=== PATIENT | female | born 1980 | race Two or more races ===

== ENCOUNTER → 2016-08-01 | Outpatient (REF) | payer BC ==
[2016-08-01 17:30] LABS: MEAN CORPUSCULAR HEMOGLOBIN 27.9 pg (27.0-33.0); MEAN CORPUSCULAR HGB CONC 32.9 g/dl (32.0-36.5); MEAN CORPUSCULAR VOLUME 84.5 fl (80.0-96.0); RED CELL DISTRIBUTION WIDTH 13.4 % (11.5-14.5); WHITE BLOOD COUNT 9.1 K/mm3 (4.0-10.0)
[2016-08-01 18:12] LABS: ALBUMIN 3.7 GM/DL (3.2-5.2); ALBUMIN/GLOBULIN RATIO 0.97 (1.00-1.93); ALKALINE PHOSPHATASE 74 U/L (45-117); ALT/SGPT 27 U/L (12-78); ANION GAP 8 MEQ/L (8-16); AST/SGOT 26 U/L (15-37); BILIRUBIN,TOTAL 0.5 MG/DL (0.2-1.0); BLOOD UREA NITROGEN 10 MG/DL (7-18); CALCIUM LEVEL 8.9 MG/DL (8.5-10.1); CARBON DIOXIDE LEVEL 27 MEQ/L (21-32); CHLORIDE LEVEL 104 MEQ/L (98-107); CHOLESTEROL LEVEL 160 MG/DL (<200); CREATININE FOR GFR 0.69 MG/DL (0.55-1.02); GLOMERULAR FILTRATION RATE > 60.0 (>60); GLUCOSE, FASTING 76 MG/DL (70-105); SODIUM LEVEL 139 MEQ/L (136-145); TOTAL PROTEIN 7.5 GM/DL (6.4-8.2); TRIGLYCERIDES LEVEL 93 MG/DL (<150)
== END ==
LOC: M SFHCCLAY 09:20
PROVIDERS: ATTEND Nurse Practitioner
DX: Z00.00 Encounter for general adult medical examination without abnormal findings (principal)

== ENCOUNTER → 2016-12-01 | Outpatient (REF) | payer BC | LOC: M LAB REF 13:14 | PROVIDERS: ATTEND Advanced Practice Midwife | DX: Z12.4 Encounter for screening for malignant neoplasm of cervix (principal) ==

== ENCOUNTER → 2017-04-13 | Outpatient (CLI) | payer BC | LOC: M CLY 13:36 | DX: M54.6 Pain in thoracic spine (principal) | CPT/HCPCS: 71046 ==

== ENCOUNTER → 2018-12-20 | Outpatient (REF) | payer BC | LOC: M SFHCLERA 08:39 | PROVIDERS: ATTEND Nurse Practitioner Family | DX: Z86.39 Personal history of other endocrine, nutritional and metabolic disease (principal) ==

== ENCOUNTER → 2022-04-28 | Outpatient (REF) | payer BC ==
[2022-04-28 11:45] LABS: BASO % 0.4 % (0.0-1.0); EOS # 0.1 10^3/uL (0.0-0.5); EOS % 1.5 % (0.0-3.0); HEMOGLOBIN 12.9 g/dl (12.0-15.5); LYMPH % 36.3 % (24.0-44.0); MEAN CORPUSCULAR HEMOGLOBIN 26.2 pg (27.0-33.0); MEAN CORPUSCULAR HGB CONC 31.5 g/dl (32.0-36.5); MEAN CORPUSCULAR VOLUME 83.3 fl (80.0-96.0); MONO # 0.5 10^3/uL (0.0-0.8); MONO % 6.2 % (2.0-8.0); NEUTROPHILS # 4.6 10^3/uL (1.5-8.5); NEUTROPHILS % 55.4 % (36.0-66.0); PLATELET COUNT, AUTOMATED 461 10^3/uL (150-450); RED BLOOD COUNT 4.92 10^6/uL (4.00-5.40); WHITE BLOOD COUNT 8.2 10^3/uL (4.0-10.0)
[2022-04-28 12:23] LABS: ALBUMIN 3.6 G/DL (3.2-5.2); ALKALINE PHOSPHATASE 72 U/L (46-116); ALT/SGPT 34 U/L (7.0-40); AST/SGOT 28 U/L (<34); BILIRUBIN,TOTAL 0.6 MG/DL (0.3-1.2); BLOOD UREA NITROGEN 13 MG/DL (9-23); CALCIUM LEVEL 8.8 MG/DL (8.5-10.1); CARBON DIOXIDE LEVEL 25 MMOL/L (20-31); CHLORIDE LEVEL 106 MMOL/L (98-107); CHOLESTEROL LEVEL 147 MG/DL (<200); CHOLESTEROL RISK RATIO 3.45 (<5); CREATININE FOR GFR 0.74 MG/DL (0.55-1.30); GLOMERULAR FILTRATION RATE > 60.0 (>58); GLUCOSE, FASTING 79 MG/DL (60-100); HDL CHOLESTEROL 42.6 MG/DL (>40); LDL CHOLESTEROL 93.8 MG/DL (<100); NON-HDL-C 104.4 MG/DL; POTASSIUM SERUM 4.6 MMOL/L (3.5-5.1); SODIUM LEVEL 139 MMOL/L (136-145); TOTAL 25(OH) VITAMIN D 29.3 NG/ML (20.0-100.0); TOTAL PROTEIN 7.3 G/DL (5.7-8.2); TRIGLYCERIDES LEVEL 53 MG/DL (<150)
== END ==
LOC: M SFHCLERA 08:55
PROVIDERS: ATTEND Student in an Organized Health Care Education/Training Program
DX: Z00.00 Encounter for general adult medical examination without abnormal findings (principal); I10 Essential (primary) hypertension; E55.9 Vitamin D deficiency, unspecified

== ENCOUNTER → 2023-04-27 | Outpatient (REF) | payer BC | LOC: M SFHCWAGY 13:22 | PROVIDERS: ATTEND Advanced Practice Midwife | DX: Z12.4 Encounter for screening for malignant neoplasm of cervix (principal) | CPT/HCPCS: 87624; G0123 ==

== ENCOUNTER → 2023-05-18 | Outpatient (CLI) | payer BC | LOC: M WHC 11:45 | PROVIDERS: ATTEND Advanced Practice Midwife | DX: N92.0 Excessive and frequent menstruation with regular cycle (principal); R93.41 Abnormal radiologic findings on diagnostic imaging of renal pelvis, ureter, or bladder ==

== ENCOUNTER → 2023-05-18 | Outpatient (CLI) | payer BC ==
[2023-05-18 15:56] LABS: BASO % 0.5 % (0.0-1.0); EOS % 0.9 % (0.0-3.0); HEMATOCRIT 41.4 % (36.0-47.0); HEMOGLOBIN 13.6 g/dl (12.0-15.5); LYMPH % 25.8 % (24.0-44.0); MEAN CORPUSCULAR HEMOGLOBIN 28.2 pg (27.0-33.0); MEAN CORPUSCULAR HGB CONC 32.9 g/dl (32.0-36.5); MEAN CORPUSCULAR VOLUME 85.9 fl (80.0-96.0); MONO % 5.9 % (2.0-8.0); NEUTROPHILS # 7.1 10^3/uL (1.5-8.5); NEUTROPHILS % 66.7 % (36.0-66.0); PLATELET COUNT, AUTOMATED 466 10^3/uL (150-450); RED BLOOD COUNT 4.82 10^6/uL (4.00-5.40); WHITE BLOOD COUNT 10.6 10^3/uL (4.0-10.0)
[2023-05-18 15:57] LABS: LYMPH # 2.7 10^3/uL (1.5-5.0)
[2023-05-18 15:58] LABS: BASO # 0.1 10^3/uL (0.0-0.2); EOS # 0.1 10^3/uL (0.0-0.5); MONO # 0.6 10^3/uL (0.0-0.8)
== END ==
LOC: M PLALAB 12:25
PROVIDERS: ATTEND Physician Assistant
DX: D75.839 Thrombocytosis, unspecified (principal)

== ENCOUNTER → 2023-08-13 | Outpatient (CLI) | payer BC ==
[~2023-08-13] MED LIST: AMLO1TAB25; BLAC40CA PO; IBUP-1022 PO; MAGN200T PO; OMEP10CASR PO; THERTAB52 PO; VENL37.598 PO; VITAMIN D PO; [UNRECOGNIZED DRUG - OTHER] PO
== END ==
LOC: M RAD 09:36
PROVIDERS: ATTEND Specialist
DX: D75.839 Thrombocytosis, unspecified (principal)

== ENCOUNTER 2024-01-02 06:04 | Day surgery (SDC) | payer BC ==
[~2024-01-02] VITALS: Ht 162.6 cm; Wt 84.8 kg
[~2024-01-02 06:04] MED LIST changes: +AMLO1TAB25 PO; +PROZ10CA7 PO
[2024-01-02] MEDS ORDERED: NS 1,000 ML IV SCH (06:20)
[2024-01-02] MEDS ORDERED: PHEN-501 PO (06:47)
[2024-01-02] MEDS ORDERED: fentaNYL 100 MCG/2 ML INJECTION As Ordered ONE (06:58)
[2024-01-02] MEDS ORDERED: HYDROmorphone HCL 2MG/ML 1ML VIAL As Ordered ONE (06:58)
[2024-01-02] MEDS ORDERED: MIDAZOLAM INJ 2MG/2ML VIAL As Ordered ONE (06:58)
[2024-01-02] MEDS ORDERED: propofoL 200 MG/20 ML VIAL As Ordered ONE (06:59)
[2024-01-02] MEDS ORDERED: ROCURONIUM BROMIDE 50MG/5ML VIAL As Ordered ONE (06:59)
[2024-01-02] MEDS ORDERED: LIDOCAINE 2% 100MG/5ML SDV (FOR ANES.) As Ordered ONE (06:59)
[2024-01-02] MEDS: METHYLENE BLUE 0.5% (5MG/ML) 10 ML AMP (PROVAYBLUE) As Ordered ONE (07:13)
[2024-01-02 07:23] LABS: HEMATOCRIT 37.3 % (36.0-47.0); MEAN CORPUSCULAR HEMOGLOBIN 26.1 pg (27.0-33.0); MEAN CORPUSCULAR HGB CONC 32.2 g/dl (32.0-36.5); MEAN CORPUSCULAR VOLUME 81.1 fl (80.0-96.0); PLATELET COUNT, AUTOMATED 463 10^3/uL (150-450); WHITE BLOOD COUNT 6.5 10^3/uL (4.0-10.0)
[2024-01-02] MEDS: ceFAZolin SOD 2 GM in IV 1 EA IV ONE (07:50)
[2024-01-02] MEDS ORDERED: GLYCOPYRROLATE INJ 0.2 MG/ML 2 ML VIAL As Ordered ONE (08:21)
[2024-01-02] MEDS ORDERED: ONDANSETRON 4MG 2ML VIAL As Ordered ONE (10:12)
[2024-01-02] MEDS ORDERED: SUGAMMADEX SODIUM 500 MG/5 ML VIAL (BRIDION) As Ordered ONE (10:16)
[2024-01-02] MEDS ORDERED: KETOROLAC 60MG 2ML VIAL As Ordered ONE (11:28)
[2024-01-02] MEDS ORDERED: fentaNYL 100 MCG/2 ML INJECTION IV PRN (11:35)
[2024-01-02] MEDS ORDERED: HYDROMORPHONE HCL 0.5 MG/ 0.5 ML SYRINGE IV PRN (11:35)
[2024-01-02] MEDS ORDERED: oxyCODONE 5MG TAB PO PRN (11:35)
[2024-01-02] MEDS ORDERED: NS 250 ML IV SCH ×2 (11:35→11:42)
[2024-01-02] MEDS: ONDANSETRON 4MG 2ML VIAL IV PRN (12:57)
[2024-01-02] MEDS ORDERED: KETOROLAC 30 MG/ML 1ML VIAL IV PRN (13:00)
[2024-01-02] MEDS ORDERED: PERCOCET 5MG/325MG TAB PO PRN ×2 (13:05)
[2024-01-02 13:33] VITALS: BP 128/75; TEMP 97.5; O2SAT 99
== END 2024-01-02 15:05 | disposition home or self-care (01) ==
LOC: M SDC 06:04
PROVIDERS: ATTEND Obstetrics & Gynecology
DX: D25.9 Leiomyoma of uterus, unspecified (principal); N85.8 Other specified noninflammatory disorders of uterus; N72 Inflammatory disease of cervix uteri; N94.6 Dysmenorrhea, unspecified; Z79.899 Other long term (current) drug therapy
CPT/HCPCS: 36415; 58571; 74018; 81025; 85027; 86850; 88307; J0665; J0690; J1100; J1171; J1596; J1885; J2250; J2405; J3010; Q9968

== ENCOUNTER → 2024-05-02 | Outpatient (CLI) | payer BC ==
[~2024-05-02] MED LIST changes: +PHEN-501 PO
== END ==
LOC: M WHC 10:59
PROVIDERS: ATTEND Advanced Practice Midwife
DX: Z12.31 Encounter for screening mammogram for malignant neoplasm of breast (principal)